=== PATIENT | female | born 1980 | race Asian ===

== ENCOUNTER → 2017-08-12 | Day surgery (SDC) | payer OTHER ==
[~2017-08-12] VITALS: Ht 157.5 cm; Wt 53.9 kg
[~2017-08-12] MED LIST: ACETAMINOPHEN/HYDROcodone 325 MG/5 MG TAB PO PRN; CHLORHEXIDINE GLUCONATE 2 % 1 PACK (2 CLOTHS) TOPICAL PRN; DEXAMETHASONE SOD PHOS 4 MG/ML VIAL IV ONE; DO NOT ADM ANY ANTICOAGULANT DRUGS PRN; FISHCAP4 PO; FOLI800T PO; INSULIN HUMAN REGULAR 1,000 UNITS/10 ML VIAL SQ PRN; KETOROLAC TROMETHAMINE 30 MG/ML (IVP) VIAL IV PUSH ONE; LACTATED RINGER'S 1000 ML INJ 1,000 ML IV ONE; LACTATED RINGER'S 1000 ML IV PRN; LIDOCAINE HCL 1% PF 5 ML SYRINGE OTHER ONE; METOPROLOL TARTRATE 25 MG TAB PO PRN; MIDAZOLAM HCL 2 MG/2 ML VIAL ONE; ONDANSETRON HCL 4 MG/2 ML VIAL IV ONE; ONDANSETRON HCL 4 MG/2 ML VIAL IV PRN; POVIDONE IODINE 5% (ANTISEPSIS KIT) 4 APPLICATIONS EACH NARE PRN; PROPOFOL 200 MG/20 ML AMP IV ONE; SODIUM CHLORID 0.9% 500 ML IV PRN; TRICTAB PO; VITA1000 PO; VITA250T3 PO; fentaNYL CITRATE 250 MCG/5 ML AMP ONE
[2017-08-12 12:20] LABS: AUTOMATED NEUTROPHIL # 4.6 TH/MM3 (1.8-7.7); BASOPHIL % 0.3 % (0.0-2.0); EOSINOPHIL # 0.2 TH/MM3 (0-0.4); EOSINOPHIL % 2.8 % (0.0-4.0); HEMATOCRIT 35.2 % (35.0-46.0); LYMPH % 22.9 % (9.0-44.0); LYMPHOCYTE # 1.6 TH/MM3 (1.0-4.8); MEAN CELL VOLUME 88.1 FL (80.0-100.0); MEAN CORPUSCULAR HEMOGLOBIN 30.1 PG (27.0-34.0); MEAN CORPUSCULAR HGB CONC 34.1 % (32.0-36.0); MEAN PLATELET VOLUME 7.5 FL (7.0-11.0); MONO % 8.3 % (0.0-8.0); MONOCYTE # 0.6 TH/MM3 (0-0.9); NEUT % 65.7 % (16.0-70.0); PLATELET COUNT 220 TH/MM3 (150-450); RED BLOOD COUNT 3.99 MIL/MM3 (4.00-5.30); RED CELL DISTRIBUTION WIDTH 12.5 % (11.6-17.2); WHITE BLOOD COUNT 6.9 TH/MM3 (4.0-11.0)
--- NOTE | 2017-08-12 13:46 | MP ---
cc: Zak Pleitez MD DATE OF OPERATION: 08/12/2017 PREOPERATIVE DIAGNOSIS: Missed . POSTOPERATIVE DIAGNOSIS: Missed . PROCEDURE PERFORMED: Dilation and evacuation of the uterus. ANESTHESIA: General. SURGEON: Alfonso Pleitez MD FINDINGS: Examination under anesthesia, cervix was clean, somewhat friable, but with negative cultures. Her cervix was parous. The uterus was slightly enlarged, freely mobile. The adnexa negative for masses. COMPLICATIONS: None. COUNTS: Correct. ESTIMATED BLOOD LOSS: 100 mL. FLUIDS: Crystalloids. DISPOSITION: The patient tolerated the procedure well, went to the recovery room in good condition. PROCEDURE IN DETAIL: The patient was taken to the operating room, identified by name band and verbally given a general anesthetic, prepped and draped in the usual sterile manner for vaginal surgery in the dorsal lithotomy position. Time-out was taken and once agreed, we went ahead and did an examination under anesthesia. Speculum was placed in the vagina. The anterior lip of the cervix was grasped with a single-tooth tenaculum. The cervix was serially dilated without difficulty and using a #8 cannula, the entire uterine contents were removed. Sharp curetting was followed and that was followed one more time with suction. The instruments were removed. At this time, she had some bleeding from the tenaculum site, which we applied some pressure for several minutes. At this point, all instruments were removed. She tolerated the procedure well, went to the recovery room in good condition. Zak Pleitez MD RJV/AKHIL , 01:31 PM , 01:45 PM
[2017-08-12 15:30] VITALS: BP 109/64; PULSE 77; RESP 20; TEMP 98.4; O2SAT 100
== END | disposition home or self-care (01) ==
LOC: HSDC 10:29
PROVIDERS: ATTEND Obstetrics & Gynecology
DX: O02.1 Missed abortion (principal)
CPT/HCPCS: 01965; 59820; 85025; 86850; 86900; 86901; 88305; C1765; J1100; J1885; J2250; J2405; J3010; J7120